=== PATIENT | female | born 1985 | race Caucasian/White ===

== ENCOUNTER 2018-06-06 10:49 | Emergency (ER) | payer OTHER ==
[2018-06-06 11:01] VITALS: BMI 30.2
[2018-06-06] MEDS ORDERED: Lidocaine 5% Patch TD STA (11:49)
[2018-06-06] MEDS ORDERED: Lidocaine 5% Patch TD ONE (12:08)
[2018-06-06 12:26] LABS: SQUAMOUS EPITHIAL 8 /hpf (0-5); URINE BILIRUBIN NEGATIVE (NEGATIVE); URINE BLOOD NEGATIVE (NEGATIVE); URINE CLARITY Clear (Clear); URINE COLOR Yellow (YELLOW); URINE GLUCOSE (UA) NORMAL (Normal); URINE LEUKOCYTE ESTERASE NEG Leu/uL (Negative); URINE PROTEIN NEGATIVE (NEGATIVE)
--- NOTE | 2018-06-06 14:02 | C.PDOC ---
History Of Present Illness 32 year old female, 5 weeks , , presents to ED for evaluation of right side lower back pain associated pelvic cramping for the past few days. Back pain is described as soreness. She reports taking Tylenol without relief. Otherwise, denies vaginal bleeding, vaginal discharge, dysuria, n/v/d, or fever. Time Seen by Provider: 06/06/18 11:19 Chief Complaint (Nursing): Back Pain History Per: Patient History/Exam Limitations: no limitations Onset/Duration Of Symptoms: Days Current Symptoms Are (Timing): Still Present Quality Of Discomfort: Cramping, Other (sore) Previous Symptoms: denies: Prior Injury Associated Symptoms: None. denies: Incontinence, New Weakness, New Numbness Additional History Per: Patient Past Medical History Reviewed: Historical Data, Nursing Documentation, Vital Signs Vital Signs: Last Vital Signs Temp 98.6 F 06/06/18 11:02 Pulse 90 06/06/18 11:02 Resp 17 06/06/18 11:02 BP 116/82 06/06/18 11:02 Pulse Ox 100 06/06/18 11:02 Surgical History: Appendectomy, Cholecystectomy Family History: States: Unknown Family Hx - Social History Hx Tobacco Use: No Hx Alcohol Use: Yes Hx Substance Use: No - Immunization History Hx Tetanus Toxoid Vaccination: Yes Hx Influenza Vaccination: No Hx Pneumococcal Vaccination: No Review Of Systems Except As Marked, All Systems Reviewed And Found Negative. Constitutional: Negative for: Fever, Chills Cardiovascular: Negative for: Chest Pain, Palpitations Respiratory: Negative for: Shortness of Breath Gastrointestinal: Positive for: Abdominal Pain. Negative for: Nausea, Vomiting, Diarrhea, Constipation Genitourinary: Positive for: Pelvic Pain. Negative for: Dysuria, Frequency, Hematuria, Vaginal Discharge, Vaginal Bleeding Musculoskeletal: Positive for: Back Pain Physical Exam - Physical Exam Appears: Non-toxic, No Acute Distress Skin: Normal Color, Warm, Dry Head: Normacephalic Eye(s): bilateral: Normal Inspection Oral Mucosa: Moist Neck: Normal ROM, Supple Chest: Symmetrical Cardiovascular: Rhythm Regular, No Murmur Respiratory: Normal Breath Sounds, No Accessory Muscle Use, No Rales, No Rhonchi, No Wheezing Gastrointestinal/Abdominal: Soft, No Tenderness, No Guarding, No Rebound Back: No CVA Tenderness, No Vertebral Tenderness, Paraspinal Tenderness (right paralumbar, L5. ) Extremity: Normal ROM Neurological/Psych: Oriented x3, Normal Speech ED Course And Treatment O2 Sat by Pulse Oximetry: 100 (RA) Pulse Ox Interpretation: Normal - CT Scan/US Preg 1st trimester US Other Rad Studies (CT/US): Read By Radiologist, Radiology Report Reviewed CT/US Interpretation: Accession No. : [id number]. Patient Name / ID : ALONDRA CAN / [id number]. Exam Date : 06/06/2018 13:20:38 ( Approved ). Study Comment : Sex / Age : F / 32Y. Creator : Anatoliy Lopes MD. Dictator : Anatoliy Lopes MD. Orthopedically Impaired Teacher : Buckle And Button Maker : Anatoliy Lopes MD. Approver2 : Report Date : 06/06/2018 15:00:39. My Comment : . Pelvic ultrasound. HISTORY: Pelvic pain. COMPARISON: None available. TECHNIQUE: Real-time sonography was performed through the pelvis utilizing transabdominal and transvaginal technique. Findings: LMP of 04/28/2018. Estimated gestational age by LMP of 5 weeks and 4 days. HCG level of 966. Uterus: 9.1 x 5.0 x 6.3 centimeters. Heterogeneous echotexture. Anteverted. Heterogeneous lesion within the anterior left aspect of the uterus suggestive for a fibroid lesion measuring 2.4 x 2.4 x 2.3 centimeters. Prominent endometrium measuring 2.3 centimeters. Cervix measures 2.9 centimeters. Nabothian cyst noted at the level of the cervix. Suggestion of an intrauterine gestational sac measuring 4.8 millimeters, too small to adequately date. No discrete yolk sac or pole identified at this juncture. Small amount of free fluid within the pelvic cul-de-sac. Right ovary: 3.3 x 2.1 x 3.3 centimeters. Normal flow. Heterogeneous cyst/corpus luteal cyst measuring 2.6 x 1.9 x 1.9 centimeters. Left ovary: 2.4 x 1.5 x 2.1 centimeters. Normal flow. Impression: 1. Suggestion of an intrauterine gestational sac measuring 4.8 millimeters, too small to adequately date. No discrete yolk sac or pole identified. Continued interval follow-up is recommended. 2. Heterogeneous lesion measuring 2.4 centimeters within the anterior left aspect of the uterus suggestive for a fibroid lesion. 3. Prominent endometrium measuring up to 2.3 centimeters. 4. 2.6 centimeters right ovarian corpus luteal/heterogeneous cyst. Limited 1st trimester ultrasound for viability purposes only. Continued interval followup with serial ultrasound, serial HCG levels, and gynecological consultation would be helpful if clinically indicated. Progress Note: Urinalysis, Beta-HCG, Preg 1st trimester ultrasound was ordered and reviewed. Pt was given Lidoderm patch. Disposition Counseled Patient/Family Regarding: Studies Performed, Diagnosis, Need For Followup, Rx Given - Disposition Referrals: Akila Wilson MD [Medical Doctor] - Disposition: HOME/ ROUTINE Disposition Time: 15:30 Condition: STABLE Prescriptions: Lidocaine 5% [Lidoderm] 1 patch TOP DAILY PRN #15 patch PRN Reason: pain Instructions: Low Back Pain (DC) Forms: [employer] (Latvian) Print Language: VENEZUELAN - Clinical Impression Clinical Impression: Low back pain, Low back pain during - Scribe Statement The provider has reviewed the documentation as recorded by the Scribe KP All medical record entries made by the Scribe were at my direction and personally dictated by me. I have reviewed the chart and agree that the record accurately reflects my personal performance of the history, physical exam, medical decision making, and the department course for this patient. I have also personally directed, reviewed, and agree with the discharge instructions and disposition.
[2018-06-06 14:31] VITALS: RESP 18
--- NOTE | 2018-06-06 15:04 | US ---
Pelvic ultrasound HISTORY: Pelvic pain. COMPARISON: None available. TECHNIQUE: Real-time sonography was performed through the pelvis utilizing transabdominal and transvaginal technique. Findings: LMP of 04/28/2018. Estimated gestational age by LMP of 5 weeks and 4 days. HCG level of 966. Uterus: 9.1 x 5.0 x 6.3 centimeters. Heterogeneous echotexture. Anteverted. Heterogeneous lesion within the anterior left aspect of the uterus suggestive for a fibroid lesion measuring 2.4 x 2.4 x 2.3 centimeters. Prominent endometrium measuring 2.3 centimeters. Cervix measures 2.9 centimeters. Nabothian cyst noted at the level of the cervix. Suggestion of an intrauterine gestational sac measuring 4.8 millimeters, too small to adequately date. No discrete yolk sac or pole identified at this juncture. Small amount of free fluid within the pelvic cul-de-sac. Right ovary: 3.3 x 2.1 x 3.3 centimeters. Normal flow. Heterogeneous cyst/corpus luteal cyst measuring 2.6 x 1.9 x 1.9 centimeters. Left ovary: 2.4 x 1.5 x 2.1 centimeters. Normal flow. Impression: 1. Suggestion of an intrauterine gestational sac measuring 4.8 millimeters, too small to adequately date. No discrete yolk sac or pole identified. Continued interval follow-up is recommended. 2. Heterogeneous lesion measuring 2.4 centimeters within the anterior left aspect of the uterus suggestive for a fibroid lesion. 3. Prominent endometrium measuring up to 2.3 centimeters. 4. 2.6 centimeters right ovarian corpus luteal/heterogeneous cyst. Limited 1st trimester ultrasound for viability purposes only. Continued interval followup with serial ultrasound, serial HCG levels, and gynecological consultation would be helpful if clinically indicated.
[2018-06-06 15:47] VITALS: BP 113/71; PULSE 82; TEMP 98.6
[2018-06-06 17:14] VITALS: O2SAT 100
== END 2018-06-06 15:46 | disposition home or self-care (01) ==
LOC: C.ER 10:49
DX: O26.891 Other specified pregnancy related conditions, first trimester (principal); M54.5 Low back pain; Z3A.01 Less than 8 weeks gestation of pregnancy

== ENCOUNTER 2018-07-15 18:41 | Emergency (ER) | payer OTHER ==
[2018-07-15 18:41] VITALS: BMI 30.2
[2018-07-15 18:48] VITALS: RESP 18; O2SAT 100
--- NOTE | 2018-07-15 19:12 | C.PDOC ---
History Of Present Illness 32 year old female, , 10 and half week presents to the ED c/o left sided suprapubic pain. Patient reports her LMP was 05/03/18. Patient denies fever, chills, nausea, vomit, diarrhea, vaginal bleeding, vaginal discharge. Time Seen by Provider: 07/15/18 19:12 Chief Complaint (Nursing): Abdominal Pain History Per: Patient History/Exam Limitations: no limitations Onset/Duration Of Symptoms: Days Location Of Pain/Discomfort: Suprapubic Quality Of Discomfort: "Pain" Associated Symptoms: denies: Nausea, Vomiting, Diarrhea, Urinary Symptoms Recent travel outside of the [place]: No Additional History Per: Patient Abnormal Vaginal Bleeding: No Last Menstral Period: 05/03/18 : 3 Para: 1 Past Medical History Reviewed: Historical Data, Nursing Documentation, Vital Signs Vital Signs: Last Vital Signs Temp 97.5 F L 07/15/18 18:44 Pulse 81 07/15/18 18:44 Resp 18 07/15/18 18:44 BP 123/80 07/15/18 18:44 Pulse Ox 100 07/15/18 18:44 - Medical History PMH: No Chronic Diseases Surgical History: Appendectomy, Cholecystectomy Family History: States: Unknown Family Hx - Social History Hx Tobacco Use: No Hx Alcohol Use: Yes Hx Substance Use: No - Immunization History Hx Tetanus Toxoid Vaccination: Yes Hx Influenza Vaccination: No Hx Pneumococcal Vaccination: No Review Of Systems Constitutional: Negative for: Fever, Chills Cardiovascular: Negative for: Chest Pain Respiratory: Negative for: Cough, Shortness of Breath Gastrointestinal: Positive for: Abdominal Pain. Negative for: Nausea, Vomiting, Diarrhea Genitourinary: Negative for: Dysuria, Hematuria, Vaginal Discharge, Vaginal Bleeding Musculoskeletal: Negative for: Back Pain Skin: Negative for: Rash Neurological: Negative for: Weakness, Numbness, Headache, Dizziness Physical Exam - Physical Exam Appears: Non-toxic, No Acute Distress Skin: Warm, Dry Head: Normacephalic Eye(s): bilateral: Normal Inspection Neck: Supple Chest: Symmetrical Cardiovascular: Rhythm Regular Respiratory: No Rales, No Rhonchi, No Wheezing Gastrointestinal/Abdominal: Soft, Tenderness (left sided suprapubic), No Guarding, No Rebound Back: No CVA Tenderness Extremity: Bilateral: Atraumatic, Normal Color And Temperature, Normal ROM Neurological/Psych: Oriented x3, Normal Speech, Normal Cognition Gait: Steady ED Course And Treatment - Laboratory Results Result Diagrams: 07/15/18 19:52 07/15/18 19:52 O2 Sat by Pulse Oximetry: 100 (ON RA) Pulse Ox Interpretation: Normal - CT Scan/US Pelvic US Other Rad Studies (CT/US): Read By Radiologist, Radiology Report Reviewed CT/US Interpretation: Procedure. OB Pelvic Ultrasound. History. LLQ Pain. . Comparison. None available. Findings. Uterus. Single Live intrauterine gestation. CRL measures 3.86 cm, equivalent to 10 weeks 5 days gestation. Gestational sac diameter is 4.47 cm, equivalent to 10 weeks 0 days gestation. Yolk sac is seen measuring 0.39 cm. Heart rate: 144.35 bpm. Low placenta. Subchorionic hemorrhage is present. . Uterus measures 11.04 x 7.52 x 8.39 cm. Anteverted. Uterine fibroid is present measuring 32.29 mm. . Cervix. Long and closed. Measures 3.19 cm. No cervical abnormality seen. Right Ovary. Measures 4.24 x 2.44 x 2.97 cm. Normal flow. Cyst measures 1.99 x 1.07 x 2.15 cm. Paraovarian cyst measures 1.16 x 1.0 x 1.43 cm. Left Ovary. Measures 2.77 x 2.13 x 3.16 cm. No mass. Normal flow. Free Fluid. None. Other Findings. None. Impression. Single live intrauterine gestation. CRL, pole, yolk sac, heart rate noted. Uterine fibroid. Right ovarian cysts. Low lying placenta. Subchorionic hemorrhage. Short term follow up is recommended in 2-3 weeks. . Electronically signed on Jul 15, 2018 10:37:55 PM EST by: Tulio Ugarte M.D., TIANA Certified By ABR & CBC[facility]. Fellowship Trained MRI and CT Specialist Progress Note: Plan: - Labs. - IV fluids. - UA. - Pelvic US Reevaluation Time: 23:09 Reassessment Condition: Improved Disposition Counseled Patient/Family Regarding: Studies Performed, Diagnosis, Need For Followup - Disposition Referrals: Akila Wilson MD [Medical Doctor] - Disposition: HOME/ ROUTINE Disposition Time: 19:12 Condition: FAIR Additional Instructions: will need a repeat ultrasound in 2-3 weeks Instructions: - The Second Month Forms: [employer] (Faroese) - Clinical Impression Clinical Impression: Abdominal pain during , Subchorionic hemorrhage - Scribe Statement The provider has reviewed the documentation as recorded by the Scribe Johnnie Venegas All medical record entries made by the Scribe were at my direction and personally dictated by me. I have reviewed the chart and agree that the record accurately reflects my personal performance of the history, physical exam, medical decision making, and the department course for this patient. I have also personally directed, reviewed, and agree with the discharge instructions and disposition.
[2018-07-15] MEDS ORDERED: Sodium Chloride 0.9% 1,000 ML ONE (19:45)
[2018-07-15] MEDS: Sodium Chloride 0.9% 1,000 ML IV ONE (19:47)
[2018-07-15 19:56] LABS: BASO # 0.1 K/uL (0.0-0.2); BASO % 0.8 % (0.0-2.0); EOS # 0.2 K/uL (0.0-0.7); HEMOGLOBIN 10.1 g/dL (11.0-16.0); LYMPH # 2.4 K/uL (1.0-4.3); LYMPH % 28.2 % (20.0-40.0); MEAN CELL VOLUME 79.3 fL (81.0-99.0); MEAN CORPUSCULAR HEMOGLOBIN 25.3 pg (27.0-31.0); MEAN CORPUSCULAR HGB CONC 31.9 g/dL (33.0-37.0); MEAN PLATELET VOLUME 8.4 fL (7.2-11.7); MONO # 0.5 K/uL (0.0-0.8); MONO % 5.7 % (0.0-10.0); NEUT # 5.3 K/uL (1.8-7.0); NEUT % 63.3 % (50.0-75.0); RBC 3.99 Mil/uL (3.80-5.20); RED CELL DISTRIBUTION WIDTH 20.7 % (11.5-14.5); WHITE BLOOD COUNT 8.4 K/uL (4.8-10.8)
[2018-07-15 20:01] LABS: SQUAMOUS EPITHIAL 2 /hpf (0-5); URINE BACTERIA OCC (<OCC); URINE BILIRUBIN NEGATIVE (NEGATIVE); URINE BLOOD NEGATIVE (NEGATIVE); URINE CLARITY Clear (Clear); URINE COLOR Yellow (YELLOW); URINE GLUCOSE (UA) NORMAL (Normal); URINE LEUKOCYTE ESTERASE 1+ Leu/uL (Negative); URINE PROTEIN NEGATIVE (NEGATIVE)
[2018-07-15 20:19] LABS: ALB/GLOB RATIO 1.3 (1.0-2.1); ALT/SGPT 11 U/L (9-52); AST/SGOT 19 U/L (14-36); BLOOD UREA NITROGEN 10 mg/dL (7-17); CALCIUM 9.1 mg/dl (8.6-10.4); GFR NON-AFRICAN AMERICAN > 60
[2018-07-15 22:29] VITALS: BP 99/69; PULSE 76; TEMP 99
--- NOTE | 2018-07-16 10:52 | US ---
Date of service: 07/15/2018 Indication: Left lower quadrant pain, Comparison: 1st trimester ultrasound performed 06/06/18 Technique: Transabdominal pelvic ultrasound Findings: The uterus measures approximately 11.0 x 7.5 x 8.4 cm. Anteverted. 3.2 cm probable uterine fibroid. Cervix length measures approximately 3.2 cm. There is a single intrauterine fetus present. 4 mm yolk sac. The gestational sac measures 4.5 cm and is compatible with a gestational age of 10 weeks 0 days. The crown-rump length measures 3.9 cm and is compatible with a gestational age of 10 weeks 5 days. Evidence of small subchorionic hemorrhage measuring 1.9 x 2.0 x 1.6 cm. The placenta appears low lying. There is heart motion which measured 144.4 BPM. The right ovary measures 4.2 x 2.4 x 3.0. The left ovary measures 2.8 x 2.1 x 3.2. Blood flow is demonstrated to both ovaries. Evidence of right para ovarian cyst measuring 1.2 x 1.0 x 1.4 cm. Impression: Live single intrauterine with estimated gestational age 10 weeks 0 days by gestational sac calculation and 10 weeks 5 days by crown-rump length calculation. heart rate 144.4 bpm. Advise an anomaly screen at 16-18 weeks gestational age 1.9 x 2.0 x 1.6 cm subchorionic hemorrhage. Currently, there is evidence of low-lying placenta. Due to placental trophotropism, the diagnosis of the placenta previa is generally not made before 20 weeks gestation. Follow-up ultrasound is recommended. Evidence of right para ovarian cyst measuring approximately 1.4 cm. Uterine fibroid. Preliminary impression was provided by [employer].
== END 2018-07-15 23:21 | disposition home or self-care (01) ==
LOC: C.ER 18:41
DX: O26.891 Other specified pregnancy related conditions, first trimester (principal); O46.8X1 Other antepartum hemorrhage, first trimester; Z3A.10 10 weeks gestation of pregnancy
CPT/HCPCS: 76801; 80053; 81001; 84702; 85025; 86850; 86900; 99284; J7030